=== PATIENT | male | born 1935 | race Caucasian/White ===

== ENCOUNTER 2018-09-18 13:16 | Emergency (ER) | payer MEDICARE, OTHER, SELFPAY ==
--- NOTE | 2018-09-18 13:22 | ED.NEUROSD ---
HPI - Neuro Symptoms/Deficit General Chief Complaint: Dizziness Stated Complaint: N/V, and headache Time Seen by Provider: 09/18/18 13:19 Source: patient and EMS Mode of arrival: EMS Limitations: no limitations History of Present Illness HPI Narrative: The patient is an 83-year-old male who presents with dizziness. He has is been ongoing for about a month progressively got worse over last 2 days. He feels nauseous but no vomiting. No chest pain. he states he does have Parkinson's and history of vertigo. Family states that he is having lower extremity weakness worsening over the last 4 days and he says his dizziness and symptoms are worse over the last 2 days. He took 3 tablets of meclizine yesterday they did not seem to help. He was flown over here from the [facility] by [employer] he said that made him feel a little worse. But now that he is not moving overall feeling better. He and family all deny any specific fall. Related Data Home Medications Medication Instructions Recorded Confirmed aspirin 81 mg PO DAILY 09/18/18 09/18/18 Allergies Allergy/AdvReac Type Severity Reaction Status Date / Time No Known Drug Allergies Allergy Verified 09/18/18 16:05 Review of Systems Review of Systems ROS Unobtainable: All systems reviewed & are unremarkable except as noted in HPI and below Constitutional Denies chills, Denies fever(s), Denies lethargy and Denies weakness Eyes Denies change in vision, Denies eye discharge, Denies irritation and Denies loss of vision ENT Ears, Nose, Mouth, and Throat: Denies change in voice, Reports dizziness, Denies neck pain and Denies sore throat Cardiovascular Denies chest pain, Denies irregular heart rhythm, Denies lightheadedness, Denies palpitations, Denies dyspnea, Denies dyspnea on exertion and Denies orthopnea Respiratory Denies cough, Denies dyspnea, Denies dyspnea on exertion and Denies wheezing Gastrointestinal Gastrointestinal: Denies abdominal pain, Denies change in bowel habits, Denies diarrhea, Denies nausea and Denies vomiting Genitourinary Denies hematuria, Denies flank pain, Denies urinary incontinence and Denies urinary urgency Musculoskeletal Denies neck pain Neurologic Reports dizziness, Denies loss of vision and Denies weakness Endocrine Denies palpitations Allergic/Immunologic Denies wheezing FOR[facility]LY [facility] Medical History BPH (benign prostatic hyperplasia) (Acute) Bladder cancer (Acute) Hyperlipidemia (Acute) Vertigo (Acute) Surgical History S/P TURP (Acute) Social History (Updated 09/18/18 @ 15:47 by Miladis Stoll DO) marital status: Smoking Status: Never smoker Exam Initial Vital Signs Initial Vital Signs: Vital Signs Temperature 98.1 F 09/18/18 13:25 Pulse Rate 82 09/18/18 13:25 Respiratory Rate 18 09/18/18 13:25 Blood Pressure 149/71 H 09/18/18 13:25 Pulse Oximetry 98 09/18/18 13:25 GENERAL: Alert elderly male no acute distress HEENT: Head atraumatic,EOMI, pupils reactive, face symmetric, CARDIOVASCULAR: Regular rate and rhythm without murmurs, rubs or gallops. RESPIRATORY: Breath sounds equal bilaterally, no wheezes rales or rhonchi. ABDOMEN: Soft, nontender. Normoactive bowel sounds all 4 quadrants. No guarding or rebound. EXTREMITIES: Normal range of motion, no clubbing or edema. Neurovascularly intact NEUROLOGICAL: Alert and oriented x4.Normal gait and speech. 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 No lower extremity weakness appreciated no ataxia. SKIN: Warm, dry, no laceration, no petechiae, no rashes or lesions. Scores GCS Sammy coma scale eye opening: Spontaneous Sammy coma scale verbal response: Orientated Rembrandt coma scale motor response: Obey commands Rembrandt coma scale total score: 15 Course Orders Ordered: ED Orders 09/18/18 13:20 EKG-12 Lead Stat 09/18/18 13:21 CT head/brain wo con Stat 09/18/18 13:36 Complete Blood Count AUTO DIFF Stat Comprehensive Metabolic Panel Stat Partial Thromboplastin Time Stat Prothrombin Time INR Stat Troponin & CK Cardiac Panel Stat Sodium Chloride (Normal Saline 0.9%) 1,000 mls @ 150 mls/hr IV CONT TREY Last Admin: 09/18/18 13:50 Dose: 150 mls/hr Consultations Consultation #1: Dr. Valentino, neurosurgery at [facility] has reviewed images he recommends that patient be sent to [facility] for evacuation of subdural hematoma. It will not be done tonight but will be done tomorrow. Time: 15:00 Vital Signs - 8 hr 09/18/18 13:25 09/18/18 14:01 09/18/18 14:30 Temperature 98.1 F Pulse Rate 82 68 67 Respiratory Rate 18 18 17 Blood Pressure 149/71 H Blood Pressure [Left Arm] 124/74 134/70 Pulse Oximetry 98 95 96 09/18/18 16:00 09/18/18 16:30 Temperature Pulse Rate 71 70 Respiratory Rate 12 15 Blood Pressure Blood Pressure [Left Arm] 131/75 143/74 H Pulse Oximetry 95 MDM - Neuro Symptoms/Deficit Lab Data Result diagrams: 09/18/18 13:36 09/18/18 13:36 Lab Results 09/18/18 09/18/18 09/18/18 Range/Units 13:36 13:36 13:36 WBC 7.7 (4.5-11.0) X10^3/uL RBC 5.70 (4.5-5.9) X10^6/uL Hgb 17.1 (13.5-17.5) g/dL Hct 48.9 (41-53) % MCV 85.7 (80-100) fL MCH 30.0 (26-34) PG MCHC 35.0 (30-36) % RDW 13.3 (11.6-14.8) % Plt Count 209 (150-400) X10^3/uL Neut % (Auto) 61.0 (50-75) % Lymph % (Auto) 26.2 (25-40) % [place] % (Auto) 9.8 (3-14) % Eos % (Auto) 2.0 (2-4) % Baso % (Auto) 1.0 (0-2) % Neut # (Auto) 4700 (4677-3364) /uL Lymph # (Auto) 2000 (5589-9285) /uL [place] # (Auto) 800 (0-900) /uL Eos # (Auto) 200 (0-450) /uL Baso # (Auto) 100 (0-100) /uL PT 13.2 H (10.1-12.7) SECONDS INR 1.1 (0.9-1.3) APTT 30 (26.4-36.2) SECONDS Sodium 134 L (137-145) mmol/L Potassium 4.1 (3.4-5.1) mmol/L Chloride 99 (98-107) mmol/L Carbon Dioxide 23 (22-32) mmol/L BUN 13 (9-20) mg/dL Creatinine 0.80 (0.66-1.25) mg/dL Estimated GFR > 60.0 (>60) mL/min BUN/Creatinine Ratio 16.3 (6-22) Glucose 91 (80-110) mg/dL Calcium 9.2 (8.4-10.2) mg/dL Total Bilirubin 1.3 (0.2-1.3) mg/dL AST 22 (17-59) IU/L ALT 30 (21-72) IU/L Alkaline Phosphatase 71 (38-126) U/L Total Creatine Kinase 43 L (55-170) U/L CK-MB (CK-2) TNP CK-MB (CK-2) Rel Index TNP Troponin I < 0.012 (0.01-0.034) ng/mL Total Protein 7.0 (6.3-8.2) g/dL Albumin 4.1 (3.5-5.0) g/dL Globulin 2.9 (1.7-4.1) g/dL Albumin/Globulin Ratio 1.4 (1.0-2.8) Point of Care Testing Glucose POC [address] scan - head: Radiologist's impression: PROCEDURE: CT HEAD/BRAIN WO CON INDICATIONS: dizzt for 1 month worse today TECHNIQUE: Noncontrast 4.5 mm thick angled axial sections acquired from the foramen magnum to the vertex, with coronal and sagittal reformats. For radiation dose reduction, the following was used: automated exposure control, adjustment of mA and/or kV according to patient size. COMPARISON: None. FINDINGS: Image quality: Excellent. CSF spaces: Basal cisterns are patent. There is a heterogeneously hypoechoic collection along right cerebral convexity suggestive of a subacute subdural hematoma and measures 1.5 cm in thickness. Mass effect on adjacent right cerebral hemisphere is seen with compression of right lateral ventricle. No hydrocephalus is seen. Mild 3-4 mm midline shift to the left is seen. Brain: No intraparenchymal bleeds or masses. There is cerebral volume loss for age, with resultant ventricular and sulcal prominence. There are periventricular and deep white matter chronic small vessel ischemic changes. There is intracranial internal carotid artery atherosclerosis. Skull and face: Calvarium and visualized facial bones appear intact, without suspicious lesions. Sinuses: Visualized sinuses and mastoids are clear. IMPRESSION: 1. Subacute appearing subdural hematoma along right cerebral convexity with mass effect on right cerebral hemisphere, right lateral ventricle and 3-4 mm midline shift to the left. 2. No gross acute intraparenchymal hemorrhage. Age-appropriate atrophy and [id number] periventricular white matter microangiopathic changes. Findings were reported to Dr. Stoll in the ER at 1:52 PM on 09/18/18. Dictated by: Moe Ashley M.D. on 09/18/2018 at 13:49 MDM Narrative Medical decision making narrative: 2:00 p.m. I have spoken with daughter who is not his POA in regards to head CT results. He has not had any intracranial hemorrhage to her knowledge no recent falls. She says his leg gives out due to his Parkinson's and gets lowered to the ground. At this time he is a full code. She is aware that we are waiting for neurosurgeon to call back [facility]. 3:00 p.m. I have spoken with patient's family they are aware that he will be going to [facility] they do not have cell phones and will be unreachable. Patient does seem awake and alert and able to make his own decisions. We talked about code status he says that he would like CPR and to be intubated. He understands that he is going for a bur hole. Which he is agreeing to. He remains hemodynamically and neurologically stable at this time. Critical Care Time Critical Care Time: Yes Total Critical Care Time: 30 Attestation: The high probability of a clinically significant, sudden or life threatening deterioration of the neurological system(s) required my full and direct attention, intervention and personal management. The aggregate critical care time was 30 minutes. This time is in addition to time spent performing reported procedures but includes the following: x Data Review and interpretation x Patient assessment and monitoring of vital signs x Documentation x Medication orders and management Discharge Plan Departure Patient Disposition: [facility] Clinical Impression: Subacute subdural hematoma Prescriptions: No Action aspirin 81 mg Tablet,Chewable 81 mg PO DAILY RF: 0 Referrals: Victor M Gray MD [Primary Care Provider] -
[2018-09-18 13:25] VITALS: BP 149/71; PULSE 82; RESP 18; TEMP 36.7; O2SAT 98; BMI 25.0
[2018-09-18] MEDS: SODIUM CHLORIDE 0.9% 1,000 ML 150 ML IV (13:50)
[2018-09-18 14:01] VITALS: BP 124/74; PULSE 68; RESP 18; O2SAT 95
[2018-09-18 14:08] LABS: Add Manual Diff / Slide Review NO; Basophils Absolute Auto 100 /uL (0-100); Eosinophils Absolute Auto 200 /uL (0-450); Hematocrit 48.9 % (41-53); Hemoglobin 17.1 g/dL (13.5-17.5); Lymphocytes Absolute Auto 2000 /uL (1100-4500); Lymphocytes Percent Auto 26.2 % (25-40); Mean Corpuscular Volume 85.7 fL (80-100); Monocytes Absolute Auto 800 /uL (0-900); Monocytes Percent Auto 9.8 % (3-14); Neutrophils Absolute Auto 4700 /uL (1500-7000); Platelet Count 209 X10^3/uL (150-400); Red Cell Distribution Width 13.3 % (11.6-14.8); White Blood Cell Count 7.7 X10^3/uL (4.5-11.0)
[2018-09-18 14:10] LABS: INR 1.1 (0.9-1.3); Prothrombin Time 13.2 SECONDS (10.1-12.7)
[2018-09-18 14:12] LABS: PTT Partial Thromboplastin Tim 30 SECONDS (26.4-36.2)
[2018-09-18 14:14] LABS: Alanine Aminotransferase 30 IU/L (21-72); Albumin 4.1 g/dL (3.5-5.0); Albumin Globulin Ratio 1.4 (1.0-2.8); Alkaline Phosphatase 71 U/L (38-126); Aspartate Aminotransferase 22 IU/L (17-59); BUN Creatinine Ratio 16.3 (6-22); Bilirubin Total 1.3 mg/dL (0.2-1.3); Blood Urea Nitrogen 13 mg/dL (9-20); Calcium 9.2 mg/dL (8.4-10.2); Carbon Dioxide 23 mmol/L (22-32); Chloride 99 mmol/L (98-107); Creatine Kinase 43 U/L (55-170); Estimated Glomerular Filt Rate > 60.0 mL/min (>60); Globulin 2.9 g/dL (1.7-4.1); Glucose 91 mg/dL (80-110); HEMOLYSIS < 15 (0-50); Potassium 4.1 mmol/L (3.4-5.1); Sodium 134 mmol/L (137-145)
[2018-09-18 14:26] LABS: Troponin I < 0.012 ng/mL (0.01-0.034)
[2018-09-18 14:30] VITALS: BP 134/70; PULSE 67; RESP 17; O2SAT 96
[2018-09-18 15:30] VITALS: BP 133/75; PULSE 67; RESP 16; O2SAT 97
[2018-09-18 16:00] VITALS: BP 131/75; PULSE 71; RESP 12; O2SAT 95
[2018-09-18 16:30] VITALS: BP 143/74; PULSE 69; PULSE 70; RESP 15; RESP 18; O2SAT 97
== END 2018-09-18 17:20 | disposition short-term general hospital (02) ==
PROVIDERS: Emergency Provider Emergency Medicine; Family Provider Family Medicine; PCP Family Medicine
DX: S06.5X9A Traumatic subdural hemorrhage with loss of consciousness of unspecified duration, initial encounter (principal); R11.0 Nausea
CPT/HCPCS: 36415; 70450; 80053; 82550; 82962; 84484; 85025; 85610; 85730; 93005; 96360; 96361; 99283; 99285

== ENCOUNTER → 2020-10-17 10:47 | Outpatient (CLI) | payer MEDICARE, OTHER, SELFPAY | PROVIDERS: Family Provider Family Medicine; PCP Family Medicine; Referring Provider Specialist; Visit Provider Specialist | DX: N39.0 Urinary tract infection, site not specified (principal); R31.0 Gross hematuria; Z85.51 Personal history of malignant neoplasm of bladder | CPT/HCPCS: 81002; 87086; 99214 ==

== ENCOUNTER → 2020-12-26 09:20 | Outpatient (CLI) | payer MEDICARE, OTHER, SELFPAY ==
[2020-12-26 20:28] LABS: Prostate Specific Antigen 1.61 ng/mL (0.10-4.00)
== END ==
PROVIDERS: Family Provider Family Medicine; PCP Family Medicine; Referring Provider Specialist; Visit Provider Specialist
DX: R31.0 Gross hematuria (principal); Z85.51 Personal history of malignant neoplasm of bladder
CPT/HCPCS: 84153

== ENCOUNTER → 2021-11-11 09:21 | Outpatient (CLI) | payer MEDICARE, OTHER, SELFPAY | PROVIDERS: Family Provider Family Medicine; PCP Family Medicine; Visit Provider Specialist | DX: R30.0 Dysuria (principal); R39.9 Unspecified symptoms and signs involving the genitourinary system | CPT/HCPCS: 81002; 87077; 87086; 87186 ==

== ENCOUNTER → 2023-07-28 09:01 | Outpatient (CLI) | payer MEDICARE, OTHER, SELFPAY ==
--- NOTE | 2023-07-28 09:10 | DI.CT.S_ITS ---
PROCEDURE: CT HEAD/BRAIN WO CON INDICATIONS: APHASIA TECHNIQUE: Noncontrast 4.5 mm thick angled axial sections acquired from the foramen magnum to the vertex, with coronal and sagittal reformats. For radiation dose reduction, the following was used: automated exposure control, adjustment of mA and/or kV according to patient size. COMPARISON: [facility], CT, CT HEAD/BRAIN WO CON, 09/18/2018, 13:27. FINDINGS: Image quality: Diagnostic. CSF spaces: Basal cisterns are patent. No extra-axial fluid collections. The ventricles are symmetric in size and shape. Brain: No intracranial bleeds or masses. There is cerebral volume loss for age, with resultant ventricular and sulcal prominence. There are periventricular and deep white matter chronic small vessel ischemic changes. There is intracranial internal carotid artery atherosclerosis. Skull and face: Calvarium and visualized facial bones appear intact, without suspicious lesions. Sinuses: Visualized sinuses and mastoids are clear. IMPRESSION: 1. No acute intracranial process. 2. Moderate to severe atrophy and chronic microvascular ischemic changes. Dictated by: Ludmila Anaya M.D. on 07/28/2023 at 15:50 Approved by: Ludmila Anaya M.D. on 07/28/2023 at 15:51
== END ==
LOC: CT 09:03
PROVIDERS: Family Provider Family Medicine; PCP Family Medicine; Referring Provider Family Medicine; Visit Provider Family Medicine
DX: R47.01 Aphasia (principal); G31.9 Degenerative disease of nervous system, unspecified
CPT/HCPCS: 70450